=== PATIENT | male | born 1945 | race Caucasian/White ===

== ENCOUNTER → 2017-04-21 | Outpatient (CLI) | payer MEDICARE, OTHER | END | disposition home or self-care (01) | LOC: CDC 14:25 | DX: Z01.810 Encounter for preprocedural cardiovascular examination (principal); M50.320 Other cervical disc degeneration, mid-cervical region, unspecified level; R94.31 Abnormal electrocardiogram [ECG] [EKG] | CPT/HCPCS: 93000 ==

== ENCOUNTER 2017-05-05 06:30 | Day surgery (SDC) | payer OTHER ==
[~2017-05-05] VITALS: Ht 172.7 cm; Wt 91.3 kg
[~2017-05-05 06:30] MED LIST: ATROVENT 00.5 MG/2.5 IH; CARDURA2 M1 PO; DAILY VITAMIN1 EAC4 PO; DESYREL 150 MG150 MG PO; DIOVAN HCT 11 TABLET PO; OMEPRAZOLE40 M1 PO; ULTRAM50 MG PO; VITAMIN B-12250 MCG PO; VITAMIN D32000 UNI1 PO; XANAX0.25 MG PO; ZOLOFT100 MG PO
[2017-05-05 07:13] VITALS: BP 134/81
[2017-05-05] MEDS ORDERED: HYDROCODON-ACE1 EAC9 PO (10:58)
[2017-05-05 12:14] VITALS: BP 146/73
[2017-05-05 17:25] VITALS: BP 151/84
== END 2017-05-05 19:28 | disposition home or self-care (01) ==
LOC: SDC 06:30 → ENRESERV 10:50 → 2SOUTH 11:00 → 3EAST 11:00 → SDC 11:20 → 3EAST 11:46
PROC: 0RB30ZZ Excision of Cervical Vertebral Disc, Open Approach (ICD-10-PCS; principal; 2017-05-05)
PROC: 0RG10A0 Fusion of Cervical Vertebral Joint with Interbody Fusion Device, Anterior Approach, Anterior Column, Open Approach (ICD-10-PCS; principal; 2017-05-05)
DX: M50.121 Cervical disc disorder at C4-C5 level with radiculopathy (principal); G89.29 Other chronic pain; M48.02 Spinal stenosis, cervical region; I10 Essential (primary) hypertension; J44.9 Chronic obstructive pulmonary disease, unspecified; F41.8 Other specified anxiety disorders; R94.31 Abnormal electrocardiogram [ECG] [EKG]; F11.20 Opioid dependence, uncomplicated; Z87.891 Personal history of nicotine dependence
CPT/HCPCS: 72020; 76000; 86850; 86900; 86901; C1713; G0378; J0131; J0690; J1100; J1170; J1885; J2250; J2405; J2710; J3010; J3480

== ENCOUNTER 2017-05-11 15:38 | Emergency (ER) | payer OTHER ==
[~2017-05-11] VITALS: Ht 172.7 cm; Wt 84.6 kg
[~2017-05-11 15:38] MED LIST changes: +HYDROCODON-ACE1 EAC9 PO
[2017-05-11 16:19] LABS: HEMATOCRIT 41.2 % (38.0-50.0); HEMOGLOBIN 14.6 G/DL (12.5-16.6); MCH 33.6 PG (29.0-34.0); MCHC 35.4 G/DL (30.0-36.0); MCV 94.7 FL (86-99); PLATELET COUNT 208 K/uL (156-360); RBC DIS.WIDTH-CV 11.9 % (11.8-14.6); RBC DIS.WIDTH-SD 41.6 % (39-53); RED BLOOD COUNT 4.35 M/uL (4.00-5.50); WHITE BLOOD COUNT 8.9 K/uL (4.1-10.2)
[2017-05-11 16:27] LABS: CHLORIDE 103 mEq/L (99-109); POTASSIUM 3.6 mEq/L (3.7-5.4); SODIUM 137 mEq/L (136-147)
[2017-05-11 16:28] LABS: GLUCOSE 121 mg/dL (70-99)
[2017-05-11 16:32] LABS: CREATININE 0.7 mg/dL (0.6-1.3); GFR ESTIMATE (CALCULATED) > 59 mL/min/ (58.99-99999)
[2017-05-11 16:33] LABS: UREA NITROGEN (BUN) 12 mg/dL (9-23)
[2017-05-11] MEDS ORDERED: DILAUDID2 MG PO (18:57)
[2017-05-11 19:11] VITALS: BP 146/85
== END 2017-05-11 19:20 | disposition home or self-care (01) ==
LOC: EME 15:38
PROVIDERS: Nurse Practitioner Family
DX: G89.18 Other acute postprocedural pain (principal); M54.2 Cervicalgia; Z98.890 Other specified postprocedural states; Z98.1 Arthrodesis status; I10 Essential (primary) hypertension; Z87.891 Personal history of nicotine dependence
CPT/HCPCS: 70490; 80048; 85027; 99281; 99284; J3010; J7030

== ENCOUNTER 2017-10-27 01:40 | Emergency (ER) | payer OTHER ==
[~2017-10-27] VITALS: Ht 172.7 cm; Wt 84.1 kg
[~2017-10-27 01:40] MED LIST changes: +DILAUDID2 MG PO
[2017-10-27 02:15] LABS: BASOPHIL (%) 0.1 % (0-1); EOSINOPHIL (%) 6.7 % (0-5); EOSINOPHIL COUNT 0.6 K/uL (0-0.3); HEMATOCRIT 41.4 % (38.0-50.0); IMMATURE GRANULOCYTE (%) 0.3 % (0.0-0.7); LYMPHOCYTE (%) 18.7 % (15-42); LYMPHOCYTE COUNT 1.7 K/uL (1.0-2.8); MCH 33.9 PG (29.0-34.0); MCHC 36.2 G/DL (30.0-36.0); MCV 93.5 FL (86-99); MONOCYTE (%) 3.8 % (3-12); MONOCYTE COUNT 0.3 K/uL (0-0.8); NEUTROPHIL (%) 70.4 % (45-76); NEUTROPHIL COUNT 6.4 K/uL (1.8-6.4); PLATELET COUNT 215 K/uL (156-360); RBC DIS.WIDTH-CV 12.9 % (11.8-14.6); RBC DIS.WIDTH-SD 44.1 % (39-53); RED BLOOD COUNT 4.43 M/uL (4.00-5.50)
[2017-10-27 02:23] LABS: INTER. NORMALIZED RATIO 1.1
[2017-10-27 02:26] LABS: PTT 25.7 SEC (25-37)
[2017-10-27 02:30] LABS: CHLORIDE 104 mEq/L (99-109); SODIUM 138 mEq/L (136-147)
[2017-10-27 02:32] LABS: GLUCOSE 129 mg/dL (70-99)
[2017-10-27 02:36] LABS: CREATININE 0.9 mg/dL (0.6-1.3); GFR ESTIMATE (CALCULATED) > 59 mL/min/ (58.99-99999)
[2017-10-27 02:37] LABS: UREA NITROGEN (BUN) 19 mg/dL (9-23)
[2017-10-27 02:45] LABS: TROP-I INTERPRETATION NEGATIVE; TROPONIN-I < 0.01 ng/mL (0.0-0.30)
[2017-10-27] MEDS ORDERED: ZITHROMAX Z-PA250 MG PO (04:12)
[2017-10-27] MEDS ORDERED: VENTOLIN HFA18 GM IH (04:19)
[2017-10-27 04:34] VITALS: BP 133/83
== END 2017-10-27 04:34 | disposition home or self-care (01) ==
LOC: EME 01:40
PROVIDERS: Emergency Medicine
DX: J40 Bronchitis, not specified as acute or chronic (principal); L25.9 Unspecified contact dermatitis, unspecified cause; Z87.891 Personal history of nicotine dependence
CPT/HCPCS: 71045; 71275; 80048; 83880; 84484; 85025; 85379; 85610; 85730; 93005; 99281; 99285; J1200